=== PATIENT | female | born 1955 | race Two or more races ===

== ENCOUNTER 2020-04-12 05:50 | Day surgery (SDC) | payer OTHER ==
[~2020-04-12 05:50] MED LIST: CLONAZEPAM0.5 MG PO; COZAAR100 MG PO; LITHOBID300 M1 PO; PROAIR HFA8.5 GM IH; QUESTRAN PACKET4 GM PO; RESTORIL30 M1 PO; SINGULAIR10 MG PO; SYNTHROID88 MCG PO
== END 2020-04-12 12:40 | disposition home or self-care (01) ==
LOC: CIR.AMB 05:50
PROVIDERS: ATTEND Colon & Rectal Surgery
DX: R15.9 Full incontinence of feces (principal); Z20.828 Contact with and (suspected) exposure to other viral communicable diseases
CPT/HCPCS: 64581; C1778

== ENCOUNTER 2020-04-26 06:36 | Day surgery (SDC) | payer OTHER | END 2020-04-26 12:20 | disposition home or self-care (01) | LOC: CIR.AMB 06:36 | PROVIDERS: ATTEND Colon & Rectal Surgery | DX: R15.9 Full incontinence of feces (principal); Z20.828 Contact with and (suspected) exposure to other viral communicable diseases | CPT/HCPCS: 64590; 95971; L8679 ==

== ENCOUNTER 2022-10-12 06:16 | Day surgery (SDC) | payer OTHER ==
[~2022-10-12] VITALS: Ht 152.4 cm; Wt 59.0 kg
== END 2022-10-12 14:50 | disposition home or self-care (01) ==
LOC: CIR.AMB 06:16
PROVIDERS: ATTEND Colon & Rectal Surgery
DX: R15.9 Full incontinence of feces (principal); T85.111A Breakdown (mechanical) of implanted electronic neurostimulator of peripheral nerve electrode (lead), initial encounter; T85.732A Infection and inflammatory reaction due to implanted electronic neurostimulator of peripheral nerve, electrode (lead), initial encounter; Z20.822 Contact with and (suspected) exposure to COVID-19; Z11.59 Encounter for screening for other viral diseases; K62.5 Hemorrhage of anus and rectum; K59.00 Constipation, unspecified; N39.0 Urinary tract infection, site not specified; D68.9 Coagulation defect, unspecified; Z88.0 Allergy status to penicillin
CPT/HCPCS: 64590; 64581; 95971; C1778; L8679

== ENCOUNTER 2024-02-04 06:44 | Day surgery (SDC) | payer OTHER ==
[~2024-02-04 06:44] MED LIST changes: +CIPROFLOXACIN IN 5 % DEXTROSE 400 MG/200 ML PIGGYBAG IV SCH
[2024-02-04] MEDS ORDERED: CIPROFLOXACIN IN 5 % DEXTROSE 400 MG/200 ML PIGGYBAG IV ONE (09:58)
[2024-02-04] MEDS ORDERED: BUPIVACAINE HCL/MPF 0.5% 30ML VIAL ONE (12:28)
[2024-02-04] MEDS ORDERED: LIDOCAINE HCL 1%/EPINEPHRINE 20ML VIAL IJ ONE (12:30)
== END 2024-02-04 16:15 | disposition home or self-care (01) ==
LOC: CIR.AMB 06:44
PROVIDERS: ATTEND Colon & Rectal Surgery
DX: T85.113A Breakdown (mechanical) of implanted electronic neurostimulator, generator, initial encounter (principal); T85.111A Breakdown (mechanical) of implanted electronic neurostimulator of peripheral nerve electrode (lead), initial encounter; R15.9 Full incontinence of feces; Z88.0 Allergy status to penicillin; J45.909 Unspecified asthma, uncomplicated; I10 Essential (primary) hypertension; E03.9 Hypothyroidism, unspecified